=== PATIENT | female | born 1990 | race African-American/Black ===

== ENCOUNTER 2017-10-02 00:57 | Emergency (ER) | payer OTHER ==
[~2017-10-02] VITALS: Ht 167.6 cm; Wt 97.1 kg
[2017-10-02 01:03] VITALS: BP 128/76; Ht 167.6 cm; Wt 97.1 kg
== END 2017-10-02 06:06 | disposition left against medical advice (07) ==
LOC: ED 00:57
DX: Z53.21 Procedure and treatment not carried out due to patient leaving prior to being seen by health care provider (principal)

== ENCOUNTER 2017-10-07 21:04 | Emergency (ER) | payer OTHER ==
[~2017-10-07] VITALS: Ht 167.6 cm; Wt 93.9 kg
[2017-10-07 21:15] VITALS: Ht 167.6 cm; Wt 93.9 kg
[2017-10-08 00:01] LABS: BASOPHIL % 0.1 % (0-2); PLATELET COUNT 202 x10^3mcL (130-400)
[2017-10-08 00:02] LABS: RED CELL DISTRIBUTION WIDTH 15.9 % (11.5-14.5)
[2017-10-08 00:19] LABS: CALCIUM 8.7 mg/dL (8.5-10.1); CHLORIDE SERUM 105 mmol/L (98-107); CREATININE SERUM 0.9 mg/dL (0.6-1.0); GFR1 > 60 mL/min; GLUCOSE SERUM 99 mg/dL (74-106); POTASSIUM SERUM 3.6 mmol/L (3.5-5.1); SODIUM SERUM 140 mmol/L (136-145)
[2017-10-08 00:24] LABS: ALBUMIN 3.6 g/dL (3.4-5.0); ALKALINE PHOSPHATASE 78 U/L (46-116); ALT/SGPT 29 U/L (14-59); AST/SGOT 21 U/L (15-37); BILIRUBIN TOTAL 0.5 mg/dL (0.20-1.00); LIPASE 99 IU/L (73-393)
[2017-10-08 01:30] VITALS: BP 155/79
== END 2017-10-08 01:30 | disposition home or self-care (01) ==
LOC: ED 21:04
PROVIDERS: Emergency Medicine
DX: O03.9 Complete or unspecified spontaneous abortion without complication (principal); K52.9 Noninfective gastroenteritis and colitis, unspecified
CPT/HCPCS: J2405; J7030

== ENCOUNTER 2019-05-17 17:12 | Emergency (ER) | payer OTHER ==
[~2019-05-17] VITALS: Ht 167.6 cm; Wt 94.3 kg
[2019-05-17 17:24] VITALS: Ht 167.6 cm; Wt 94.3 kg
[2019-05-17 18:55] VITALS: BP 122/67
== END 2019-05-17 18:55 | disposition home or self-care (01) ==
LOC: ED 17:12
DX: S05.01XA Injury of conjunctiva and corneal abrasion without foreign body, right eye, initial encounter (principal); W45.8XXA Other foreign body or object entering through skin, initial encounter; Y93.89 Activity, other specified; Y92.89 Other specified places as the place of occurrence of the external cause; Y99.8 Other external cause status

== ENCOUNTER 2019-11-21 19:23 | Emergency (ER) | payer OTHER ==
[~2019-11-21] VITALS: Ht 167.6 cm; Wt 96.6 kg
[2019-11-21 19:31] VITALS: Ht 167.6 cm; Wt 96.6 kg
[2019-11-21 21:25] VITALS: BP 110/75
== END 2019-11-21 21:25 | disposition home or self-care (01) ==
LOC: ED 19:23
DX: K52.9 Noninfective gastroenteritis and colitis, unspecified (principal)
CPT/HCPCS: J1885; Q0162

== ENCOUNTER 2020-01-21 23:12 | Emergency (ER) | payer OTHER ==
[~2020-01-21] VITALS: Ht 172.7 cm; Wt 98.4 kg
[2020-01-21 23:13] VITALS: Ht 172.7 cm; Wt 98.4 kg
[2020-01-22 02:08] VITALS: BP 122/85
== END 2020-01-22 02:09 | disposition home or self-care (01) ==
LOC: ED 23:12
DX: R05 Cough (principal)
CPT/HCPCS: Q0092

== ENCOUNTER 2020-03-19 17:25 | Emergency (ER) | payer OTHER ==
[~2020-03-19] VITALS: Ht 167.6 cm; Wt 98.0 kg
[2020-03-19 17:32] VITALS: Ht 167.6 cm; Wt 98.0 kg
[2020-03-19 18:23] LABS: BASOPHIL % 0.7 % (0-2); PLATELET COUNT 247 x10^3mcL (130-400)
[2020-03-19 18:24] LABS: RED CELL DISTRIBUTION WIDTH 14.9 % (11.5-14.5)
[2020-03-19 20:01] VITALS: BP 129/75
== END 2020-03-19 19:59 | disposition home or self-care (01) ==
LOC: ED 17:25
PROVIDERS: Emergency Medicine
DX: O20.0 Threatened abortion (principal)
CPT/HCPCS: 36415; Q0092

== ENCOUNTER 2020-06-06 21:20 | Emergency (ER) | payer OTHER ==
[~2020-06-06] VITALS: Ht 167.6 cm; Wt 96.6 kg
[2020-06-06 21:28] VITALS: Ht 167.6 cm; Wt 96.6 kg
[2020-06-06 22:28] VITALS: BP 120/81
== END 2020-06-06 22:28 | disposition home or self-care (01) ==
LOC: ED 21:20
DX: L02.413 Cutaneous abscess of right upper limb (principal)

== ENCOUNTER 2020-06-08 18:15 | Emergency (ER) | payer OTHER ==
[~2020-06-08] VITALS: Ht 167.6 cm; Wt 96.6 kg
[2020-06-08 18:37] VITALS: Ht 167.6 cm; Wt 96.6 kg
[2020-06-08 19:41] VITALS: BP 136/72
== END 2020-06-08 19:41 | disposition home or self-care (01) ==
LOC: ED 18:15
DX: L02.413 Cutaneous abscess of right upper limb (principal)
CPT/HCPCS: 90715; J2001

== ENCOUNTER 2020-06-10 20:03 | Emergency (ER) | payer OTHER ==
[~2020-06-10] VITALS: Ht 167.6 cm; Wt 96.2 kg
[2020-06-10 20:21] VITALS: Ht 167.6 cm; Wt 96.2 kg
[2020-06-10 21:19] VITALS: BP 119/77
== END 2020-06-10 21:03 | disposition home or self-care (01) ==
LOC: ED 20:03
DX: L02.413 Cutaneous abscess of right upper limb (principal); T50.905A Adverse effect of unspecified drugs, medicaments and biological substances, initial encounter; Z88.2 Allergy status to sulfonamides; Z88.1 Allergy status to other antibiotic agents; Y92.89 Other specified places as the place of occurrence of the external cause